=== PATIENT | male | born 1965 | race Caucasian/White ===

== ENCOUNTER 2017-10-09 15:24 | Emergency (ER) | payer MEDICARE, MEDICAID ==
[~2017-10-09] VITALS: Ht 170.2 cm; Wt 90.1 kg
[~2017-10-09 15:24] MED LIST: ALBU8.5H8 IH; ASPI-611 PO; CLON0.5T23 PO; FERR325T32 PO; HYDR-565 PO; LABE100T PO; LISI10TA4 PO; METF500T4 PO; METH5TAB2 PO; SIMV40TA PO; VIT D2 PO
[2017-10-09 16:47] VITALS: BP 144/96
== END 2017-10-09 16:48 | disposition home or self-care (01) ==
LOC: ER 15:24
DX: J06.9 Acute upper respiratory infection, unspecified (principal); E78.00 Pure hypercholesterolemia, unspecified; E11.9 Type 2 diabetes mellitus without complications; I10 Essential (primary) hypertension; F15.90 Other stimulant use, unspecified, uncomplicated; F11.10 Opioid abuse, uncomplicated; Z79.84 Long term (current) use of oral hypoglycemic drugs; Z88.0 Allergy status to penicillin; Z87.891 Personal history of nicotine dependence
CPT/HCPCS: 82948; 99282

== ENCOUNTER 2018-01-12 17:37 | Emergency (ER) | payer MEDICARE, MEDICAID ==
[~2018-01-12] VITALS: Ht 172.7 cm; Wt 90.0 kg
[~2018-01-12 17:37] MED LIST changes: +METF-436 PO; -METF500T4 PO
[2018-01-12 20:43] VITALS: BP 113/59
== END 2018-01-12 21:20 | disposition home or self-care (01) ==
LOC: ER 17:37
DX: R07.81 Pleurodynia (principal); E78.00 Pure hypercholesterolemia, unspecified; E11.9 Type 2 diabetes mellitus without complications; I10 Essential (primary) hypertension; F15.10 Other stimulant abuse, uncomplicated; F11.10 Opioid abuse, uncomplicated; Z88.0 Allergy status to penicillin; Z91.040 Latex allergy status; Z79.899 Other long term (current) drug therapy; Z79.84 Long term (current) use of oral hypoglycemic drugs
CPT/HCPCS: 71045; 99284

== ENCOUNTER 2021-01-19 12:54 | Emergency (ER) | payer MEDICARE, MEDICAID ==
[~2021-01-19] VITALS: Ht 170.2 cm; Wt 81.0 kg
[~2021-01-19 12:54] MED LIST changes: +HYDR-4353 PO; -HYDR-565 PO; -LABE100T PO; +LABE100T5 PO; +LISI10TA27 PO; -LISI10TA4 PO
[2021-01-19 13:45] VITALS: BP 176/103
[2021-01-19] MEDS ORDERED: orphenadrine citrate 60mg/2ml inj. IM ONE (14:40)
[2021-01-19] MEDS ORDERED: acetaminophen 325mg tablet PO ONE (14:40)
[2021-01-19] MEDS ORDERED: ORPH100T2 PO (14:44)
[2021-01-19] MEDS ORDERED: ACET-1025 PO (14:44)
== END 2021-01-19 15:11 | disposition home or self-care (01) ==
LOC: ER 12:54
DX: G89.29 Other chronic pain (principal); M54.42 Lumbago with sciatica, left side; J45.909 Unspecified asthma, uncomplicated; N28.9 Disorder of kidney and ureter, unspecified; I10 Essential (primary) hypertension; E11.9 Type 2 diabetes mellitus without complications; E78.00 Pure hypercholesterolemia, unspecified; F15.90 Other stimulant use, unspecified, uncomplicated; F11.90 Opioid use, unspecified, uncomplicated; Z88.0 Allergy status to penicillin; Z91.040 Latex allergy status; Z79.82 Long term (current) use of aspirin; Z79.899 Other long term (current) drug therapy
CPT/HCPCS: 96372; 99283; J2360

== ENCOUNTER 2024-12-25 14:33 | Outpatient (CLI) | payer MEDICAID, MEDICARE ==
[~2024-12-25] VITALS: Ht 170.2 cm; Wt 97.5 kg
[~2024-12-25 14:33] MED LIST changes: +ALBU8.5H17 IH; -ALBU8.5H8 IH; -LABE100T5 PO; +LABE100T8 PO; +METH-806 PO; -METH5TAB2 PO; +ORPH100T4 PO; +SIMV-343 PO; -SIMV40TA PO
[2024-12-25 15:08] VITALS: PULSE 54; RESP 16; O2SAT 92
[2024-12-25] MEDS: albuterol 2.5 MG/3 ML nebule NEB ONE (15:08)
[2024-12-25 15:20] VITALS: PULSE 55; RESP 16
== END 2024-12-25 23:59 | disposition home or self-care (01) ==
LOC: RT 14:33
PROVIDERS: ATTEND Family Medicine
DX: R05.3 Chronic cough (principal)
CPT/HCPCS: 94060; 94760

== ENCOUNTER 2025-04-28 05:50 | Day surgery (SDC) | payer MEDICARE, MEDICAID ==
[2025-04-28] VITALS (15 sets, daily range): BP systolic 124–193; BP diastolic 63–105; PULSE 61–80; RESP 12–21; TEMP 96.7; O2SAT 92–100
[~2025-04-28] VITALS: Ht 170.2 cm; Wt 93.8 kg
[2025-04-28] MEDS: DOCUMENT DATE & TIME OF BETA-BLOCKER PO ONE (05:30)
[~2025-04-28 05:50] MED LIST changes: +ATOR40TA72 PO; +BUDE10.26; +CLON0.1T2 PO; -CLON0.5T23 PO; +DOCU-391 PO; +GABA-1405 PO; +GLIM1TAB57 PO; -HYDR-4353 PO; +HYDR25TA4 PO; -LISI10TA27 PO; +LISI20TA28 PO; +LORA10TA7 PO; -METF-436 PO; +METF-438 PO; -METH-806 PO; -ORPH100T4 PO; +OXYC1TAB17 PO; +POTA10CA95 PO; -SIMV-343 PO; +TRAZ150T78 PO; -VIT D2 PO
[2025-04-28] MEDS ORDERED: LIDOcaine 2% (20mg/ml) 5ml vial ONE ×2 (06:41→07:08)
[2025-04-28] MEDS ORDERED: BUPIVAcaine/PF 2.5mg/ml (0.25%) 10ml vial ONE (06:42)
[2025-04-28] MEDS: ringers solution, lacted 1,000 ML IV SCH (06:54)
[2025-04-28] MEDS ORDERED: triamcinolone acetonide 40mg/ml inj ONE (07:00)
[2025-04-28] MEDS ORDERED: hydrALAZINE 20mg/ml inj. IV PRN (07:10)
[2025-04-28] MEDS ORDERED: labetalol 20mg/4ml (5mg/ml) syringe IV PRN (07:10)
[2025-04-28] MEDS ORDERED: morphine 4 MG/ML inj SYRINge IV PRN (07:10)
[2025-04-28] MEDS ORDERED: ringers solution, lacted 1,000 ML IV SCH (07:10)
[2025-04-28] MEDS ORDERED: ondansetron/PF 4mg/2ml inj IV PRN (07:10)
[2025-04-28] MEDS ORDERED: fentaNYL/PF 50MCG/1 ML 2ML syringe IV PRN ×2 (07:10)
[2025-04-28] MEDS ORDERED: fentaNYL/PF 50MCG/1 ML 2ML syringe ONE (07:16)
[2025-04-28] MEDS ORDERED: propofol inj 20 ML IV ONE (07:18)
[2025-04-28] MEDS ORDERED: labetalol 20mg/4ml (5mg/ml) syringe IV ONE (07:34)
[2025-04-28 07:39] LABS: CREATININE 1.36 MG/DL (0.60-1.10); PRE OP ALT 22 U/L (30-65); PRE OP ANION GAP 7 (8-16); PRE OP AST 16 U/L (10-37); PRE OP BILIRUB, TOTAL 0.2 MG/DL (0.0-1.0); PRE OP GLUCOSE 145 MG/DL (70-104); PRE OP POTASSIUM 4.2 MMOL/L (3.4-5.1); PRE OP SODIUM 137 MMOL/L (135-145); TOTAL CARBON DIOXIDE 32.1 MMOL/L (24-32); eCRCL 54 ML/MIN; eGFR 53 ML/MIN
[2025-04-28] MEDS ORDERED: hydrALAZINE 20mg/ml inj. ONE (07:40)
[2025-04-28] MEDS ORDERED: metoprolol tartrate 1mg/ml inj IV ONE (07:44)
[2025-04-28] MEDS: BUPIVAcaine/PF 2.5mg/ml (0.25%) 10ml vial IJ ONE (07:58)
[2025-04-28] MEDS: LIDOcaine 2% (20mg/ml) 5ml vial SQ ONE (07:59)
--- NOTE | 2025-04-28 12:54 | OPERATIVE REPORT ---
Operative Report Providers to ~ Date of Procedure: Apr 28, 2025 Pre-Operative Diagnosis: Right thumb mass right trigger thumb left middle trigger finger Post-Operative Diagnosis Benign neoplasm subcutaneous tissue right thumb, right thumb trigger thumb, left middle finger trigger finger Procedure Performed Excision of benign neoplasm subcutaneous tissue right thumb 1 cm diameter, right thumb incision of tendon sheath, left middle finger steroid injection flexor tendon sheath Surgeon: Ryan Aguirre MD Patient Financial Services Manager None Anesthesiologist: Satnam Farnsworth Findings: Estimated Blood Loss: None Specimen Removed: None Description of Procedure: The patient is a 60-year-old man with the above issues refractory to nonsurgical treatment. Surgery is indicated to relieve symptoms. Risks and benefits of the stated procedure were discussed with the patient and consent was obtained. He was brought to the operating room where the arm was prepped and draped in usual manner. On the right hand local anesthetic was infiltrated at the base of the thumb consisting of plain Marcaine and plain lidocaine. A tourniquet was elevated on the forearm. A transverse incision was made over the flexor tendon at the MCP crease. Tendon sheath was identified and digital nerves were gently mobilized and protected. The tendon sheath in the A1 frida area was divided longitudinally. The tendon was retracted and inspected and noted to be free of any lesions. An incision was made over the mass of the thumb which is on the distal phalanx level on the palmar radial side. After reflecting the skin was clear this was a foreign body inclusion cyst type of lesion. It was dissected around the periphery while protecting digital nerve. It was excised in one piece and was not sent to pathology. It measured a cm in diameter. Both incisions were irrigated and closed with nylon suture followed by application of the sterile dressing. The tourniquet was released the hand perfused well. The opposite hand was addressed with sterile prep over the distal palm level and a 25 gauge needle with the Kenalog was in in inserted into the subcutaneous tissues and injected over the flexor tendon sheath. The patient was taken to the recovery room in stable condition and tolerated the procedure well. RYAN AGUIRRE Jr., MD Apr 28, 2025 12:54
== END 2025-04-28 10:14 | disposition home or self-care (01) ==
LOC: PAS 05:50
PROVIDERS: ATTEND Orthopaedic Surgery Hand Surgery
DX: M65.311 Trigger thumb, right thumb (principal); M65.332 Trigger finger, left middle finger; R22.31 Localized swelling, mass and lump, right upper limb; I12.9 Hypertensive chronic kidney disease with stage 1 through stage 4 chronic kidney disease, or unspecified chronic kidney disease; E11.22 Type 2 diabetes mellitus with diabetic chronic kidney disease; N18.2 Chronic kidney disease, stage 2 (mild); J44.9 Chronic obstructive pulmonary disease, unspecified; G47.33 Obstructive sleep apnea (adult) (pediatric); Z87.891 Personal history of nicotine dependence; Z79.82 Long term (current) use of aspirin; Z79.84 Long term (current) use of oral hypoglycemic drugs; Z79.899 Other long term (current) drug therapy; Z98.890 Other specified postprocedural states; Z88.0 Allergy status to penicillin
CPT/HCPCS: 11421; 20550; 26055; 36415; 80053; A4215; A6449; J0360; J2003; J2704; J3010; J3301; J3490; J7030; J7120; Z7506; Z7512; Z7610